=== PATIENT | male | born 1955 | race Caucasian/White ===

== ENCOUNTER 2016-12-03 17:49 | Emergency (ER) | payer OTHER ==
[2016-12-03 19:09] VITALS: BP 107/73
--- NOTE | 2016-12-03 19:51 | UC ---
General HPI - HPI Summary HPI Summary: Patient has been on a long course of steroids with his surgery, has had increased irritation and shite film on the mouth, decreased taste. - History of Current Complaint Chief Complaint: UCGeneralIllness Stated Complaint: oral complaint (?thrush) Time Seen by Provider: 12/03/16 19:28 Hx Obtained From: Patient Onset/Duration: Sudden Onset, Lasting Days Onset Severity: Mild Current Severity: Moderate - Allergy/Home Medications Allergies/Adverse Reactions: Allergies Allergy/AdvReac Type Severity Reaction Status Date / Time Cefazolin Allergy Unknown Verified 12/03/16 19:09 Reaction Details Erythromycin Allergy Vomiting Verified 12/03/16 19:09 Nabumetone [From Relafen] Allergy Rash Verified 12/03/16 19:09 Tramadol [From Ultram] Allergy Rash Verified 12/03/16 19:09 Home Medications: Home Medications Armodafinil 150 mg PO DAILY 12/03/16 [History Confirmed 12/03/16] Cyclobenzaprine TAB* [Flexeril 10 MG TAB*] 10 mg PO TID PRN 12/03/16 [History Confirmed 12/03/16] Gabapentin CAP(*) [Neurontin 300 CAP(*)] 300 mg PO TID 12/03/16 [History Confirmed 12/03/16] Meloxicam [Mobic] 7.5 mg PO DAILY 12/03/16 [History Confirmed 12/03/16] Nebivolol HCl [Bystolic] 5 mg PO DAILY 12/03/16 [History Confirmed 12/03/16] Pravastatin Sodium [Pravachol] 40 mg PO BEDTIME 12/03/16 [History Confirmed 01/12] Tizanidine HCl [Zanaflex] 2 mg PO BEDTIME 12/03/16 [History Confirmed 12/03/16] oxyCODONE TAB* [Roxycodone TAB 5 mg*] 15 mg PO Q6H PRN MDD 4 12/03/16 [History Confirmed 12/03/16] PMH/Surg Hx/FS Hx/Imm Hx Previously Healthy: Yes - Surgical History Surgical History: Yes Surgery Procedure, Year, and Place: Disc replacement C4-C5. LSP SURGERY X6 L3- L4/L4-L5 FUSED. BILATERAL KNEE TORN MENISCUS REPAIRED. LEFT HEEL SHATTERED W/ HARDWARE - Family History Known Family History: Negative: Cardiac Disease, Hypertension - Social History Alcohol Use: None Substance Use Type: None Smoking Status (MU): Never Smoked Tobacco Review of Systems Constitutional: Negative Skin: Negative Eyes: Negative ENT: Other - mouth pain Respiratory: Negative Cardiovascular: Negative Gastrointestinal: Negative Genitourinary: Negative Motor: Negative Neurovascular: Negative Musculoskeletal: Negative Neurological: Negative Psychological: Negative All Other Systems Reviewed And Are Negative: Yes Physical Exam Triage Information Reviewed: Yes Appearance: Well-Nourished, Ill-Appearing, Pain Distress Vital Signs: Initial Vital Signs Temp 97.7 F 12/03/16 19:01 Pulse 98 12/03/16 19:01 Resp 14 12/03/16 19:01 BP 107/73 12/03/16 19:01 Pulse Ox 97 12/03/16 19:01 Vital Signs Reviewed: Yes Eye Exam: Normal ENT Exam: Normal ENT: Positive: Other: - oral mucus infalmmed, white film noted on tongue and sides of oral mucosa Dental Exam: Normal Neck: Positive: Other: - in soft collar Respiratory Exam: Normal Respiratory: Positive: Chest non-tender, Lungs clear, Normal breath sounds Cardiovascular Exam: Normal Cardiovascular: Positive: RRR, No Murmur, Pulses Normal Abdominal Exam: Normal Abdomen Description: Positive: Nontender, No Organomegaly, Soft Bowel Sounds: Positive: Present Musculoskeletal Exam: Normal Musculoskeletal: Positive: Strength Intact, ROM Intact, No Edema Neurological Exam: Normal Neurological: Positive: Alert, Muscle Tone Normal Psychological Exam: Normal Skin Exam: Normal Course/Dx - Course Course Of Treatment: hx obtained, exam performed, meds reviewed, treated for oral thrush - Differential Dx - Multi-Symptom Provider Diagnoses: oral thrush Discharge - Discharge Plan Condition: Stable Disposition: HOME Prescriptions: Nystatin SUSPENSION* 100,000 unit PO QID #28 ml Patient Education Materials: Oral Candidiasis (ED) Referrals: Saturnino Joyner MD [Primary Care Provider] - Additional Instructions: 1. I have prescribed nystatin , use as directed 2. Use the coconut oil swishing 2-3 times a day , up to 5 minutes at a time and spit into the garbage and rinse with warm water. 3. follow up with any increasing difficulty.
== END 2016-12-03 20:01 | disposition home or self-care (01) ==
LOC: UCCORT 17:49
DX: B37.0 Candidal stomatitis (principal)
CPT/HCPCS: 99212; G0463